=== PATIENT | female | born 1980 | race Hispanic/Latino ===

== ENCOUNTER 2019-07-05 12:13 | Emergency (ER) | payer MEDICAID, OTHER ==
[~2019-07-05 12:13] MED LIST: [UNRECOGNIZED DRUG - CODE] PO
[2019-07-05 13:27] LABS: APPEARANCE,URINE Clear (CLEAR); BILIRUBIN,URINE Negative (NEGATIVE); COLOR,URINE Yellow (YELLOW); GLUCOSE, URINE (UA) Negative (NEGATIVE); KETONES,URINE Negative (NEGATIVE); LEUKOCYTE ESTERASE ,URINE Negative (NEGATIVE); NITRATE,URINE Negative (NEGATIVE); OCCULT BLOOD,URINE Negative (NEGATIVE); PH,URINE 6.5 (5.0-8.0); PROTEIN,URINE Negative (NEGATIVE)
[2019-07-05 13:30] LABS: HCG,QUAL RESULT NEGATIVE (NEGATIVE)
[2019-07-05] MEDS ORDERED: DEXAMETHASONE SOD PHOSPHATE 10MG/ML 1ML VIAL ONE (13:35)
[2019-07-05] MEDS ORDERED: KETOROLAC TROMETHAMINE 60 MG/2 ML VIAL ONE (13:35)
== END 2019-07-05 13:55 | disposition home or self-care (01) ==
LOC: EDH 12:13
DX: M54.5 Low back pain (principal); Z98.890 Other specified postprocedural states
CPT/HCPCS: 81003; 81025; 96372 ×2; 99284; J1100; J1885

== ENCOUNTER 2024-04-24 20:32 | Emergency (ER) | payer BC, OTHER ==
[~2024-04-24] VITALS: Ht 165.1 cm; Wt 76.2 kg
[2024-04-24 21:25] LABS: APPEARANCE,URINE CLEAR (CLEAR); BILIRUBIN,URINE NEGATIVE (NEGATIVE); COLOR,URINE LIGHT-YELLOW (YELLOW); GLUCOSE, URINE (UA) NEGATIVE (NEGATIVE); KETONES,URINE NEGATIVE (NEGATIVE); LEUKOCYTE ESTERASE ,URINE NEGATIVE Leu/uL (NEGATIVE); NITRATE,URINE NEGATIVE (NEGATIVE); OCCULT BLOOD,URINE NEGATIVE (NEGATIVE); PH,URINE 5.5 (5.0-8.0); PROTEIN,URINE NEGATIVE (NEGATIVE); UROBILINOGEN,URINE 0.2 mg/dL (0.2-1.0)
[2024-04-24 21:27] LABS: HCG,QUALITATIVE URINE NEGATIVE (NEGATIVE)
[2024-04-24 21:32] LABS: MUCUS,URINE RARE LPF (None Seen); RBC,URINE 0-1 /HPF (0-1); SQUAMOUS EPITHELIAL CELL,UR RARE /HPF (0-2); WBC,URINE 0-1 /HPF (0-1)
[2024-04-24] MEDS: FAMOTIDINE 20MG VIAL IV ONE (21:32)
[2024-04-24] MEDS: ONDANSETRON 4MG INJ IVP ONE (21:33)
[2024-04-24 21:44] VITALS: BP 127/91; PULSE 66; RESP 12; O2SAT 96
[2024-04-24 21:54] LABS: BASOPHILS # (AUTO) 0.03 K/uL (0.00-0.20); BASOPHILS % (AUTO) 0.2 % (0.0-5.0); EOSINOPHILS # (AUTO) 0.27 K/uL (0.00-0.70); EOSINOPHILS % (AUTO) 1.9 % (0.0-8.0); HEMATOCRIT 43.3 % (36-48); IMMATURE GRANULOCYTE ABSOLUTE 0.06 K/uL (0-1); LYMPHOCYTES % (AUTO) 20.9 % (21.0-51.0); MEAN CORPUSCULAR HEMOGLOBIN 29.6 pg (27.0-33.0); MEAN CORPUSCULAR VOLUME 89.6 fL (79-99); MONOCYTES # (AUTO) 1.1 K/uL (0.1-1.0); MONOCYTES % (AUTO) 7.3 % (3.0-13.0); NEUTROPHILS % (AUTO) 69.3 % (40.0-77.0); PLATELET COUNT (AUTO) 305 K/uL (130-400); RED BLOOD CELL COUNT(AUTO) 4.83 MIL/uL (4.00-5.50); WHITE BLOOD COUNT (AUTO) 14.4 K/uL (4.8-10.8)
[2024-04-24 22:06] LABS: INR <= 0.93 (0.85-1.15); PROTHROMBIN TIME 9.8 SEC (9.6-11.6)
[2024-04-24 22:08] LABS: PARTIAL THROMBOPLASTIN TIME 26.8 SEC (26.3-35.5)
[2024-04-24] MEDS: MORPHINE 2 MG SYG IM ONE (22:12)
[2024-04-24 22:14] LABS: CREATININE 0.9 mg/dL (0.5-1.0); POTASSIUM 3.5 mmol/L (3.5-5.1)
[2024-04-24 22:23] LABS: ALBUMIN 4.6 g/dL (3.5-5.0); BILIRUBIN,TOTAL 0.3 mg/dL (0.2-1.0); TOTAL PROTEIN, SERUM 8.4 g/dL (6.0-8.3)
[2024-04-24] MEDS: KETOROLAC 30MG VIAL (30MG/ML) IVP ONE (23:51)
[2024-04-24] MEDS: CEFTRIAXONE 1G VIAL IVPB ONE (23:51)
[2024-04-25] MEDS: MORPHINE 2 MG SYG IVP ONE (00:13)
[2024-04-25] MEDS ORDERED: SULF1TAB42 PO (00:27)
[2024-04-25] MEDS ORDERED: KETO10TA2 PO (00:55)
== END 2024-04-25 01:13 | disposition home or self-care (01) ==
LOC: EDH 20:32
DX: K57.90 Diverticulosis of intestine, part unspecified, without perforation or abscess without bleeding (principal); Z98.890 Other specified postprocedural states
CPT/HCPCS: 99284; 74176; 96374; 96375 ×2; 84484; 80053; 83690; 85025; 85610; 85730; 81001; 81025; 36415; 93005; 96372; J3490; J2270 ×2; J0696; J2405 ×2; J1885

== ENCOUNTER 2025-03-03 21:18 | Emergency (ER) | payer BC ==
[~2025-03-03] VITALS: Ht 165.1 cm; Wt 71.7 kg
[~2025-03-03 21:18] MED LIST changes: +KETO10TA2 PO; +SULF1TAB42 PO
--- NOTE | 2025-03-03 22:26 | NUR ---
10 SUTURES WERE REMOVED BY JOAN ALFORD.
[2025-03-03] MEDS ORDERED: SULF1TAB42 PO (22:33)
[2025-03-03] MEDS ORDERED: MUPI22OI2 TP (22:33)
[2025-03-03] MEDS: cefTRIAXone 1G VIAL IM ONE (22:33)
--- NOTE | 2025-03-03 22:34 | ERN ---
General Chief Complaint: Skin Problem Stated Complaint: INFECTED STICHES Time Seen by MD: 21:26 Time Seen by Midlevel: 21:26 Source: patient History of Present Illness Initial Comments The patient is a 44-year-old female presenting to the emergency department for a wound evaluation. The patient states she had an excisional biopsy of her right breast approximately two weeks ago. She states she had basal cell carcinoma removed from the right breast. She had 10 sutures placed. She has a follow up coming up in four days but decided to report to the emergency department after she noticed an increase in redness around the excision site. She also noticed yellow crusting and increased pain. Denies any fever, chills, or any other symptoms at this time. Allergies: Coded Allergies: No Known Drug Allergies (Unverified Allergy, Unknown, 07/01/17) Home Meds Active Scripts Ketorolac Tromethamine (Ketorolac Tromethamine) 10 Mg Tablet, 10 MG PO BID for 5 Days, #10 TAB Prov:JAYNE NICHOLE 04/25/24 Sulfamethoxazole/Trimethoprim (Bactrim Ds Tablet) 800 Mg-160 Mg Tablet, 1 TAB PO BID for 7 Days, #14 TAB 0 Refills Prov:LLUVIA MICHEL MD 04/25/24 Reported Medications Mv. Min Cmb#50/Iron,Carb/FA (Thrivite Rx Tablet) 1 Each Tablet, 1 EACH PO DAILY, TAB 07/02/17 Past Medical History Past Medical History: No Pertinent History Past Surgical History: Other Surgical History Other: BREAST AUGMENTATION ROS Dictation CONSTITUTIONAL: Negative except for HPI HEAD/FACE: Negative except for HPI EENT: Negative except for HPI RESPIRATORY: Negative except for HPI GASTROINTESTINAL/ABDOMINAL: Negative except for HPI GENITOURINARY: Negative except for HPI MUSCULOSKELETAL: Negative except for HPI INTEGUMENTARY: Negative except for HPI NEUROLOGICAL/PSYCH: Negative except for HPI HEMATOLOGIC/LYMPHATIC: Negative except for HPI All Systems Negative, Except as noted above. 13 point review of systems assessed and all negative except for above. Physical Exam Physical Exam Dictation PHYSICAL EXAM: GENERAL: alert,, awake oriented x 3 HEENT: EOMI, Sclera non icteric, moist mucosa NECK: Supple, no JVD, trachea midline LUNGS: Clear breath sounds bilaterally. No wheezes HEART: Regular rate and rhythm. Normal S1 and S2, without murmurs ABD: Abdomen soft, nontender. Bowel sounds present EXT: No clubbing or cyanosis, NEURO: Alert and oriented to person, follows commands SKIN: There are 10 simple interrupted sutures to the right breast with surrounding erythema, there is yellow crusting over the sutures. MDM MDM: 44-year-old female presenting to the ER for a wound evaluation to her right breast. Patient had a basal cell carcinoma excised proximally two weeks ago. She had a follow up coming up but she noticed signs of infection so she decided to report to the ER for further evaluation. On physical examination there are [address] with surrounding erythema and yellow crusting. This is consistent with what appears to be the start of an infection. The incision is well approximated. Ten sutures were removed. The area was cleansed with wound cleanser and the patient was given 1 g of ceftriaxone IM. She will be discharged home with a prescription for Bactrim. She needs to follow up with her doctor in four days as scheduled. Differential diagnosis: Cellulitis, post surgical complication, wound evaluation There are no social concerns with this patient. Prescription drug management Prescriptions will include: Bactrim, mupirocin ointment Medical management and examination interpretation discussions were had by me with other qualified healthcare professionals as indicated for the patient's care. ED Course Vital Signs Date Time Temp Pulse Resp B/P (MAP) Pulse Ox O2 Delivery O2 Flow Rate FiO2 03/03/25 21:19 97.7 82 20 169/92 99 Room Air DX & DISP Disposition: Discharge Departure Impression: Primary Impression: Encounter for evaluation of wound Additional Impression: Cellulitis of right breast Condition: Stable Scripts Mupirocin (Mupirocin Ointment) 2 % Oint 1 APPL TP TID for 5 Days, #15 GM 0 Refills apply to affected area(s) Prov: JAYNE NICHOLE 03/03/25 Sulfamethoxazole/Trimethoprim (Bactrim Ds Tablet) 800 Mg-160 Mg Tablet 1 TAB PO BID for 7 Days, #14 TAB 0 Refills Prov: JAYNE NICHOLE 03/03/25 Additional Instructions: Ten sutures were successfully removed with no complications. Your physical examination is consistent with what appears to be the start of an infection. You were given 1 g of ceftriaxone in the emergency department. I have given you a prescription for Bactrim and mupirocin ointment for outpatient management. Please follow up with your doctor as scheduled. Return to the ER if you develop any new or worsening symptoms Referrals: MIKE LANGE MD (PCP) Time of Disposition: 22:32 I have reviewed the case, and I agree with, Diagnosis and Plan I performed the substantive portion of the visit. I have reviewed and personally made and approve the management plan that is documented in the note by myself or the KRISTIE. I acknowledge for responsibility for the patient's management plan. JAYNE NICHOLE Mar 03, 2025 22:34
[2025-03-03 22:46] VITALS: BP 123/65; PULSE 77; RESP 18; TEMP 97.7; O2SAT 98
== END 2025-03-03 22:47 | disposition home or self-care (01) ==
LOC: EDH 21:18
DX: N61.0 Mastitis without abscess (principal); Z79.899 Other long term (current) drug therapy; Z98.890 Other specified postprocedural states
CPT/HCPCS: 99284; 96372; J0696; 99283